=== PATIENT | female | born 1990 ===

== ENCOUNTER 2018-07-30 06:12 | Day surgery (SDC) | payer SELFPAY ==
[2018-07-30] MEDS ORDERED: Lactated Ringer's 1,000 ML IV ONE (07:00)
[2018-07-30 07:02] VITALS: BMI 34.5
[2018-07-30] MEDS ORDERED: Silver Nitrate Topical - Stick ONE (07:26)
[2018-07-30] MEDS ORDERED: Ferric Subsulfate Sol(60 mL) ONE (07:27)
[2018-07-30] MEDS ORDERED: Strong Iodine Topical Sol. 5%-10% ONE (07:27)
[2018-07-30] MEDS ORDERED: ePHEDrine 50 mg/ml Inj ONE (07:40)
[2018-07-30] MEDS ORDERED: Propofol 10 mg/ml Inj (20 ML) ONE (07:40)
[2018-07-30] MEDS ORDERED: Lidocaine 4% (Laryng-O-Jet) Kit MM ONE (07:40)
[2018-07-30] MEDS ORDERED: Midazolam 2 MG/2 ML VIAL ONE (07:40)
[2018-07-30] MEDS ORDERED: Succinylcholine 200 mg/10 ml Inj IV ONE (07:43)
[2018-07-30] MEDS ORDERED: Strong Iodine Topical Sol. 5%-10% TOP ONE (08:12)
[2018-07-30] MEDS ORDERED: Dexamethasone 4 mg/1 ml ONE (08:19)
[2018-07-30] MEDS ORDERED: Ferric Subsulfate Sol(60 mL) TP ONE ×2 (08:32)
[2018-07-30] MEDS ORDERED: HYDROmorphone 0.5 mg/0.5 ml ISec IVP PRN (09:03)
[2018-07-30] MEDS ORDERED: Lactated Ringer's 1,000 ML IV SCH (09:15)
[2018-07-30 10:41] VITALS: BP 118/54; PULSE 66; RESP 18; TEMP 97.9; O2SAT 98
--- NOTE | 2018-07-31 03:42 | OP ---
PROCEDURE DATE: 07/30/2018 PREOPERATIVE DIAGNOSIS: Cervical dysplasia with cervical intraepithelial neoplasia grade 2. POSTOPERATIVE DIAGNOSIS: Cervical dysplasia with cervical intraepithelial neoplasia grade 2. OPERATION PERFORMED: Loop electrosurgical excision procedure. SURGEON: William Soriano MD [employer] OPERATOR: Carlie Costello PGY2 TYPE OF ANESTHESIA: General. ANESTHESIA ADMINISTERED BY: Ashley Sutton MD INDICATION: This is a 28-year-old, , with a history of an abnormal Pap smear showing LGSIL with HPV positive, a subsequent colposcopy and biopsy showed GUIDO 2. The patient had no significant past medical history. Past surgical history was only significant for a D and C. Due to these findings, the patient was recommended to undergo an ablative or excisional procedure and the patient stated she desires the excisional procedure and a LEEP procedure was scheduled. All risks and benefits were discussed with the patient including the potential risk of labor, cervical incompetence, premature rupture of membranes, and cervical stenosis. The patient accepted these risks as they were reviewed with her with a diplomatic interpreter present. All questions were answered and the consent was previously signed. All questions were again answered in the holding area and the patient was then taken to the operating room. Pertinent findings and primary exam revealed a normal size midline uterus with no adnexal masses was palpated. Cervix did not appear to have any gross masses and Lugol solution revealed the area of non-uptake surrounding the squamocolumnar junction and ____ at the 12 o'clock position. SPECIMEN: LEEP cone biopsy. ESTIMATED BLOOD LOSS: Minimal to 10 mL. URINE OUTPUT: Approximately 20 mL of clear yellow urine drained with red rubber catheter. DESCRIPTION OF PROCEDURE: The patient was taken to the operating room where she was given general anesthesia without difficulty. She was then prepped and draped in the usual sterile fashion and placed in the dorsal lithotomy position. A preoperative bimanual exam revealed the findings as above and the preoperative beta quantitative test was negative for . At this time, a large weighted speculum was placed in the vagina and the Lugol solution was painted along the entire cervix and vaginal wall. The areas of non-uptake were noted around the squamocolumnar junction and ____ at the 12 o'clock position. The large loop was then used to remove the anterior to posterior area of the cervix and this excised piece of the cervix was sent to pathology for evaluation. The bed of excised cervical tissue along the cervix was cauterized using the rollerball and Monsel solution was also placed and good hemostasis was noted following. All instruments were then removed from the vagina at this point. The patient tolerated the procedure well without complications and was taken to the recovery room in stable condition. She was informed to continue pelvic rest and can use Motrin for pain and will return to office in two weeks for postoperative evaluation and review of pathology results. William Soriano MD
== END 2018-07-30 11:18 | disposition home or self-care (01) ==
LOC: H.OPSURG 06:12
PROVIDERS: ATTEND Obstetrics & Gynecology
DX: N87.1 Moderate cervical dysplasia (principal); N72 Inflammatory disease of cervix uteri
CPT/HCPCS: 57522; 88305; J0330; J1100; J2001; J2250; J2405; J2704; J3010; J7030; J7120